=== PATIENT | female | born 1990 | race Caucasian/White ===

== ENCOUNTER → 2018-02-04 09:48 | Outpatient (CLI) | payer SELFPAY ==
[2018-02-04 11:46] LABS: hCG Titer Quant., Serum < 1 mIU/mL (<9 non-preg)
== END ==
PROVIDERS: Visit Provider Obstetrics & Gynecology
DX: N91.2 Amenorrhea, unspecified (principal)
CPT/HCPCS: 36415; 84702

== ENCOUNTER → 2018-08-10 09:46 | Outpatient (CLI) | payer OTHER, SELFPAY ==
[2014-01-30 07:58] VITALS: BMI 31.6
[2018-08-10 10:45] LABS: Color, Urine Yellow (Yellow); Glucose, Dipstick Normal (Normal); Ketone-Dipstick Negative (Negative); Leukocyte Esterase-Dipstick 500 /ul (Negative); Nitrite-Dipstick Negative (Negative); Occult Blood-Urine Negative /ul (Negative); Protein-Dipstick Negative (Negative); Urine Bilirubin Dipstick Negative (Negative); Urine Clarity Clear (Clear); Urine Urobilinogen Normal (Normal)
[2018-08-10 10:50] LABS: Absolute Lymphocyte Count 1.89 X10^3/ul (0.83-4.51); Absolute Neutrophil Count 5.6 X10^3/uL (2.0-7.7); Basophil# 0.02 X10^3/uL; Basophil% 0.2 % (0-1); Eosinophil# 0.07 X10^3/uL; Eosinophils% 0.9 % (0-5); Hematocrit 39.3 % (37-47); Hemoglobin 13.4 g/dl (12.0-15.0); Lymphocyte # 1.89 X10^3/ul (4.0); Lymphocyte % 23.5 % (19-41); Mean Corp Hgb Conc 34.1 g/gl (32-36); Mean Corpuscular Hgb 30.9 pg (27.0-32.0); Mean Corpuscular Volume 90.6 fL (81-99); Monocyte# 0.48 X10^3/uL; Neutrophil # 5.58 X10^3/uL (2.7-7.7); Neutrophil % 69.3 % (47-70); Platelet Count 255 K/mm3 (150-450); RBC Distribution Width CV 12.5 % (11.6-14.6); RBC Distribution Width SD 40.8 fl (35.1-43.9); Red Blood Count 4.34 M/mm3 (4.2-5.4); White Blood Count 8.1 K/mm3 (4.4-11.0)
[2018-08-10 11:06] LABS: POSITIVE COUNT NO; POSITIVE DIFFERENTIAL NO; POSITIVE MORPHOLOGY NO
[2018-08-10 12:01] LABS: HIV - WCH Non-Reactive (Nonreactive); Rubella IgG 23.7 IU/mL; Thyroid Stim Hormone (TSH) 1.75 uIU/mL (0.358-3.74)
[2018-08-10 17:21] LABS: Chlamydia Trachomatis by PCR Negative (Negative); Neisserai gonorrhoeae by PCR Negative (Negative); Probe Check PASS; Sample Adequacy Control PASS; Specimen Processing Control PASS
[2018-08-11 16:48] LABS: HEPATITIS B SURFACE AG Negative (Negative); Hep C Antibodies 0.1 s/co ratio (0.0-0.9)
[2018-08-12 01:43] LABS: Prenatal RPR NONREACTIVE (NONREACTIVE)
[2018-08-16 17:50] LABS: HPV Reflexed? NOT INDICATED
== END ==
PROVIDERS: Visit Provider Obstetrics & Gynecology
DX: Z34.81 Encounter for supervision of other normal pregnancy, first trimester (principal); Z12.4 Encounter for screening for malignant neoplasm of cervix; Z11.3 Encounter for screening for infections with a predominantly sexual mode of transmission
CPT/HCPCS: 36415; 81002; 84443; 85025; 86703; 86762; 86803; 87340; 87491; 87591; 88175; G0145

== ENCOUNTER → 2019-01-11 09:08 | Outpatient (CLI) | payer OTHER, SELFPAY ==
[2019-01-11 10:53] LABS: Glucose Challenge Gest 1H 50g 68 mg/dL (70-140)
[2019-01-11 10:57] LABS: Hematocrit 35.5 % (37-47); Hemoglobin 11.5 g/dL (12.0-15.0); Mean Corp Hgb Conc 32.4 g/dL (32-36); Mean Corpuscular Hgb 31.3 pg (27.0-32.0); Mean Corpuscular Volume 96.5 fL (81-99); Mean Platelet Vol. 9.8 fl (6.2-12.0); Platelet Count 241 K/mm3 (150-450); RBC Distribution Width CV 12.6 % (11.6-14.6); RBC Distribution Width SD 44.1 fl (35.1-43.9); Red Blood Count 3.68 M/mm3 (4.2-5.4)
== END ==
PROVIDERS: Visit Provider Obstetrics & Gynecology
DX: Z34.83 Encounter for supervision of other normal pregnancy, third trimester (principal)
CPT/HCPCS: 36415; 82950; 85027; 86850

== ENCOUNTER → 2019-03-03 15:37 | Outpatient (CLI) | payer OTHER, SELFPAY | PROVIDERS: Visit Provider Obstetrics & Gynecology | DX: Z36.85 Encounter for antenatal screening for Streptococcus B (principal) | CPT/HCPCS: 87081 ==

== ENCOUNTER 2019-03-29 01:30 | Inpatient (IN) | payer SELFPAY, OTHER ==
[2014-01-30 07:58] VITALS: BMI 31.6
[2019-03-28 20:12] VITALS: BMI 36.6
[2019-03-29] MEDS: Lactated Ringers 1,000 ML 50 ML IV (02:00)
[2019-03-29 02:18] LABS: Absolute Lymphocyte Count 1.85 X10^3/uL (0.83-4.51); Absolute Neutrophil Count 12.8 X10^3/uL (2.0-7.7); Basophil# 0.04 X10^3/uL; Basophil% 0.3 % (0-1); Eosinophil# 0.01 X10^3/uL; Eosinophils% 0.1 % (0-5); Hemoglobin 11.4 g/dL (12.0-15.0); Lymphocyte # 1.85 X10^3/ul (4.0); Mean Corp Hgb Conc 33.5 g/dL (32-36); Mean Corpuscular Hgb 31.2 pg (27.0-32.0); Mean Corpuscular Volume 93.2 fL (81-99); Mean Platelet Vol. 9.7 fl (6.2-12.0); Monocyte% 3.9 % (0-10); NRBC Flagged by Analyzer 0 % (0-5); Neutrophil # 12.82 X10^3/uL (2.7-7.7); Neutrophil % 83.1 % (47-70); Platelet Count 281 K/mm3 (150-450); RBC Distribution Width CV 12.9 % (11.6-14.6); RBC Distribution Width SD 43.7 fl (35.1-43.9); Red Blood Count 3.65 M/mm3 (4.2-5.4); White Blood Count 15.4 K/mm3 (4.4-11.0)
[2019-03-29] MEDS: Lactated Ringers 500 ML 999 ML IV ×2 (02:20→03:33)
--- NOTE | 2019-03-29 03:05 | HP.PCM_ITS ---
History and Physical Date of Admission: 03/29/19 OB HISTORY AND PHYSICAL EXAMINATION History of this : 28 yo female Ab1 with EDC 03/30/2019 by 6 weeks 6 days Ultrasound, presents to Labor and Delivery pm 03/28/19 with CC of UCs. Observed and eventual change from 2cm to 4 cm. Admitted for labor. care remarkable for - O NEGATIVE. Rubella immune GBS negative. 1.) * Prefers MD for delivery 2.) Anatomy normal, bilateral choroid plexus cysts at 20 weeks, resolved at 31 weeks 3.) Rh negative SURGICAL HISTORY: 1. none MENSTRUAL HISTORY: LMP Known?- Definite Amount/Duration - 4, Regularity - Irregular, Frequency - variable days, LMP - 05/29/18, Age Onset Menarche - 11 PAST PREGNANCIES: Total Pregnancies - 4; Full Term Pregnancies - 2; Premature - 0; Abortions, Induced - 0; Abortions, Spontaneous - 1; Ectopics - 0; Multiple Births - 0; Living Children - 2 SOCIAL HISTORY: Alcohol Use - RARELY not while Smoking - denies smoking Diet - moderate, balanced diet Lifestyle - Exercise - walking Employer - [email or web address] Illicit Drug Use - denies use of street drugs Sexual Activity - Residence - lives with Spouse-Sig Other Name - Chris Spouse-Sig Other Occupation - [employer] Spouse-Sig Other Phone No - [phone] cell - shared w/ pt Children Name(s) - Terra (CALEB), Sam Wyman (CRISTINE) Control - Allergies: NKDA Medications: During - Supplement (s) [No Strength]; Multivitamins 28 mg iron-800 mcg tablet; magnesium 200 mg tablet; vitamin B complex tablet; vitamin E 100 unit capsule Review of Systems: Contractions. Denies ROM. No vaginal bleeding. PHYSICAL EXAMINATION General Appearance: 28 yo female in no acute distress Vital Signs: AF, VSS Lungs: regular rate and rhythm Breasts: deferred Abdomen: gravid Cervix: 4/75/-3 Presentation: cephalic Size: AGA Movement: present Heart: 130-14os avg variability. Accels Category I tracing. UCs q 2-7 mins Impression /Plan: Intrauterine . Early labor. IBOW. Category I tracing. Admit for labor and delivery. Considering epidural, declines at present.
[2019-03-29] MEDS: fentaNYL-bupivacaine (epidural) 100 ML BAG EPIDURAL ×2 (03:55→08:09)
[2019-03-29] MEDS: Oxytocin 30 units/NS 500 ml 30 UNITS/500 ML IV.SOLN IV (06:27)
[2019-03-29] MEDS: Lactated Ringers 1,000 ML 200 ML IV (08:07)
[2019-03-29] MEDS: Oxytocin 30 units/NS 500 ml 30 UNITS/500 ML IV.SOLN 334 UNITS IV (09:44)
--- NOTE | 2019-03-29 10:12 | PCM.PN.BLA ---
Progress Note LABOR PROGRESS NOTE Late entry from rounding this am at 0820 am Comfortable with epidural and not feeling anything Offered AROM and choses to do this. EFM 130-140s with accels. Category I tracing. UCs noted AROM clear fluid. 5 cm. A/P: 39 5/7 wk presented in early labor. AROM Watch progress, descent. Anticipate .
--- NOTE | 2019-03-29 12:49 | PCM.OPRPT ---
Vaginal Delivery Maternal Presentation: Active Labor 39 5/7 wk labor Amniotic Membrane Rupture Type: Artificial Amniotic Fluid Description: Clear Final ZAYDA: 03/31/19 Final ZAYDA Source: US <20 weeks Gestational age: 39 Weeks and 5 Days Date of Procedure: 03/29/19 Pre-Operative Diagnosis: 39 5/7 wk EGA labor Post-Operative Diagnosis: same Surgery/ Procedure Performed: Spontaneous Vaginal Delivery Type of Anesthesia: Epidural Description of Procedure: AROM and Pitocin augmented. of a harris viable female over intact perineum. Head delivered DEONTE. No nuchal cord noted. Shoulders delivered easily. Infant to maternal abdomen and OP and nares bulb suctioned on abdomen. Cord clamped times two and cut. Ap 01/02 Routine cord blood obtained for typing -- Pt is O Neg PP exam. Abrasions only and no repair required. Placenta delivered by spont expulsion, expression 3V cord, normal appearing, intact. EBL 250 cc Pt and infant tolerated delivery well. to recovery, stable condition. Ray Shawna and needle counts correct times two. Presentation: Vertex, DEONTE Placental Delivery Description: Spontaneous, Expressed Placenta Disposition: [facility] Cord Vessel Description: 3 Vessels Cord Entanglement: None Drain: Rm to straight drain Estimated Blood Loss: 250 A gender: Female (1 minute): 9 (5 minute): 9 Episiotomy Description: None Laceration: None - abrasions only and no repair required Medications given after delivery: IV Pitocin
[2019-03-29] MEDS: Ibuprofen 600 MG Tablet PO (13:53)
[2019-03-29 15:30] VITALS: BP 114/68; PULSE 86; RESP 24; TEMP 36.8; O2SAT 95
[2019-03-29 20:23] VITALS: BP 102/78; PULSE 91; RESP 16; TEMP 36.5; O2SAT 96
[2019-03-30 00:43] VITALS: BP 121/76; PULSE 85; RESP 16; TEMP 36.6
[2019-03-30] MEDS: Ibuprofen 600 MG Tablet PO (00:48)
[2019-03-30 04:02] VITALS: BP 122/70; PULSE 82; RESP 14; TEMP 36.5
--- NOTE | 2019-03-30 08:10 | PCM.DCVAG ---
Discharge Diet: No Restrictions Discharge Activity: May Shower, May Take a Tub Bath May resume sexual activity in: 4-6 weeks Additional Instructions: If you experience any of the following, contact your healthcare provider. Bleeding that soaks a pad every hour for 2 hours Fever 100.4 or higher Unrelieved abdominal pain Problems urinating (including inability to urinate or burning while urinating). Visual changes Severe headache Flu-like symptoms Pain or redness in one of both of your breasts Pain, warmth, tenderness or swelling in your legs, especially the calf area Frequent nausea and vomiting Symptoms of depression or anxiety If you experience any of the following, call 911 or go to the nearest Emergency Room. Chest pain Problems breathing Seizure activity Partial or complete paralysis of a body part, slurred speech, weakness or drooping of the face, or a sudden inability to walk or hold your balance Allergies/Adverse Reactions: Allergies No Known Allergies Allergy (Verified 03/28/19 20:13) Medications to take at Discharge Vits [Prenatabs FA ] 1 tablet PO DAILY 01/30/14 Please Follow Up With: Litzy Alvarez MD - [phone] When: Call to make an appointment with your doctor in 6 weeks. If you had elevated Blood Pressure or 4th degree laceration you will need to be seen in 2 weeks. Test Results: Test results from this visit will be discussed in further detail at your follow-up appointment, if applicable. Proposed Discharge Date: 03/30/19
--- NOTE | 2019-03-30 08:10 | DCINST_ITS ---
Discharge Diet: No Restrictions Discharge Activity: May Shower, May Take a Tub Bath May resume sexual activity in: 4-6 weeks Additional Instructions: If you experience any of the following, contact your healthcare provider. * Bleeding that soaks a pad every hour for 2 hours * Fever 100.4 or higher * Unrelieved abdominal pain * Problems urinating (including inability to urinate or burning while urinating). * Visual changes * Severe headache * Flu-like symptoms * Pain or redness in one of both of your breasts * Pain, warmth, tenderness or swelling in your legs, especially the calf area * Frequent nausea and vomiting * Symptoms of depression or anxiety If you experience any of the following, call 911 or go to the nearest Emergency Room. * Chest pain * Problems breathing * Seizure activity * Partial or complete paralysis of a body part, slurred speech, weakness or drooping of the face, or a sudden inability to walk or hold your balance Allergies/Adverse Reactions: Allergies No Known Allergies Allergy (Verified 03/28/19 20:13) Medications to take at Discharge Vits [Prenatabs FA ] 1 tablet PO DAILY 01/30/14 Please Follow Up With: Litzy Alvarez MD - [phone] When: Call to make an appointment with your doctor in 6 weeks. If you had elevated Blood Pressure or 4th degree laceration you will need to be seen in 2 weeks. Test Results: Test results from this visit will be discussed in further detail at your follow- up appointment, if applicable. Proposed Discharge Date: 03/30/19
--- NOTE | 2019-03-30 08:11 | PCM.PN.OB ---
Subjective: PPD#1 Doing well. breast feeding and baby is sleepy. Minimal pain. if all going well today with baby, would like to go home today. - Physical Exam Vitals/I&O's: Vital Signs Temp Pulse Resp BP Pulse Ox 97.7 F L 82 14 122/70 H 96 03/30/19 04:02 03/30/19 04:02 03/30/19 04:02 03/30/19 04:02 03/29/19 20:23 Oxygen Delivery Method Room Air Weight: 102.965 kg Body Mass Index (BMI) 36.6 Intake and Output for Last 24 Hours 03/28/19 03/29/19 03/30/19 23:59 23:59 23:59 Intake Total 3282.39 / 3282.39 Output Total 1950 / 1950 Balance 1332.39 / 1332.39 General: Alert, Oriented x3, Cooperative, No apparent distress HEENT: Atraumatic, EOMI Neck: Supple Extremities: Edema Neurological: Cranial nerves II-XII grossly intact Psych/Mental Status: Normal Affect Current Medications Acetaminophen (Tylenol) 1,000 mg PO Q8H PRN PRN PRN Reason: Pain Score 1-3/10 Bisacodyl (Dulcolax) 10 mg RECTAL UD PRN PRN Reason: If no BM Dibucaine (Dibucaine) 1 applic TOPICAL TID PRN PRN; Protocol PRN Reason: Discomfort Hydrocortisone (Hytone) 1 applic TOPICAL TID PRN PRN; Protocol PRN Reason: Discomfort Ibuprofen (Motrin) 600 mg PO Q6H PRN PRN PRN Reason: Pain Score 1-3/10 Last Admin: 03/30/19 00:48 Dose: 600 mg Documented by: Methylergonovine Maleate (Methergine) 0.2 mg IM X1 PRN PRN Reason: Excess bleeding/uterine atony Ondansetron HCl (Zofran) 4 mg IV Q4H PRN PRN PRN Reason: Nausea Senna/Docusate Sodium (Senokot-S, Renetta-Colace) 1 - 2 tablet PO DAILY PRN PRN PRN Reason: Constipation Simethicone (Mylicon) 80 mg PO PCHS PRN PRN Reason: Indigestion/Stomach pain Sodium Chloride () 5 - 15 ml IV UD PRN PRN Reason: SALINE FLUSH Zolpidem Tartrate (Ambien (Generic)) 5 mg PO QHS PRN PRN PRN Reason: Insomnia Medical Necessity - Tobacco Use Smoking Status: Never smoker Assessment/Plan PPD#1 Stable . GBS neg and plans to go home today if baby is released. Continue routine pp care. Dischg home today if baby is released. RTO in 6 wk for pp check prn sooner.
[2019-03-30 09:10] VITALS: BP 125/58; PULSE 91; RESP 18; TEMP 36.4
--- NOTE | 2019-03-30 12:13 | NURSING ---
pt noticed area on right leg on outer calf, and one spot upper inner thigh that was pink and slightly warm. spot on calf the size of 1.2 dollar and slightly oblong, the spot on her inner thigh is the size of a ever. Pt is watching the areas and following up with her doctor the same time her baby follows up today or Sat. They seem the same provider.
[2019-03-30 13:44] VITALS: BP 119/62; PULSE 86; RESP 18; TEMP 36.6
== END 2019-03-30 15:15 | disposition home or self-care (01) | DRG 807 ==
LOC: WPOUT 01:32 → WP 01:32
PROVIDERS: Admitting Provider Obstetrics & Gynecology; Referring Provider Obstetrics & Gynecology; Visit Provider Obstetrics & Gynecology
DX: O35.0XX0 Maternal care for (suspected) central nervous system malformation in fetus, not applicable or unspecified (principal); Z37.0 Single live birth; O71.89 Other specified obstetric trauma; Z3A.39 39 weeks gestation of pregnancy
CPT/HCPCS: 59025; 59050; 85025; 86850; 86900; 86901; 99218; J7120; G0378

== ENCOUNTER → 2022-01-05 | Outpatient (CLI) | payer OTHER, SELFPAY ==
[2022-01-08 16:33] LABS: HPV APTIMA, High Risk Negative (Negative)
== END | disposition home or self-care (01) ==
LOC: LABSPEC 09:53
PROVIDERS: Visit Provider Student in an Organized Health Care Education/Training Program
DX: Z12.4 Encounter for screening for malignant neoplasm of cervix (principal)
CPT/HCPCS: 87624; 88175; G0145

== ENCOUNTER → 2022-03-25 | Outpatient (CLI) | payer OTHER, SELFPAY ==
[2022-03-25 14:33] LABS: Absolute Lymphocyte Count 1.91 X10^3/uL (0.83-4.51); Absolute Neutrophil Count 8.2 X10^3/uL (2.0-7.7); Basophil# 0.04 X10^3/uL; Basophil% 0.4 % (0-1); Eosinophil# 0.03 X10^3/uL; Eosinophils% 0.3 % (0-5); Hematocrit 40.9 % (37-47); Hemoglobin 13.5 g/dL (12.0-15.0); Lymphocyte # 1.91 X10^3/ul (0.83-4.51); Lymphocyte % 17.8 % (19-41); Mean Corpuscular Hgb 30.1 pg (27.0-32.0); Mean Corpuscular Volume 91.3 fL (81-99); Mean Platelet Vol. 9.8 fl (6.2-12.0); Monocyte# 0.47 X10^3/uL; Monocyte% 4.4 % (0-10); NRBC Flagged by Analyzer 0 % (0-5); Neutrophil # 8.21 X10^3/uL (2.7-7.7); Neutrophil % 76.6 % (47-70); Platelet Count 291 K/mm3 (150-450); RBC Distribution Width CV 12.5 % (11.6-14.6); RBC Distribution Width SD 41.3 fl (35.1-43.9); Red Blood Count 4.48 M/mm3 (4.2-5.4); White Blood Count 10.7 K/mm3 (4.4-11.0)
[2022-03-25 16:13] LABS: HIV - WCH Non-Reactive (Nonreactive); Hepatitis B Surface Antigen Non-Reactive (Nonreactive); Hepatitis C Antibody Non-Reactive (Nonreactive); Rubella IgG Reactive (Nonreactive); Syphilis Antibodies Non-reactive
[2022-03-27 10:42] LABS: V-Zoster IgG (Immunity) 776 index (Immune >165)
[2022-03-30 22:06] LABS: Chlamydia By Nucleic Acid AMP Negative (Negative)
[2022-03-31 11:12] LABS: Gonococcus By Nucleic Acid AMP Negative (Negative)
== END | disposition home or self-care (01) ==
LOC: WOBLAB 13:54
PROVIDERS: Visit Provider Student in an Organized Health Care Education/Training Program
DX: Z34.81 Encounter for supervision of other normal pregnancy, first trimester (principal); Z11.3 Encounter for screening for infections with a predominantly sexual mode of transmission
CPT/HCPCS: 36415; 85025; 86703; 86762; 86780; 86787; 86803; 87086; 87088; 87340; 87491; 87591

== ENCOUNTER → 2022-08-28 | Outpatient (CLI) | payer OTHER, SELFPAY ==
[2022-08-28 10:45] LABS: Absolute Lymphocyte Count 1.92 X10^3/uL (0.83-4.51); Absolute Neutrophil Count 8.1 X10^3/uL (2.0-7.7); Basophil# 0.04 X10^3/uL; Basophil% 0.4 % (0-1); Eosinophil# 0.07 X10^3/uL; Eosinophils% 0.7 % (0-5); Hematocrit 35.7 % (37-47); Hemoglobin 12.1 g/dL (12.0-15.0); Lymphocyte # 1.92 X10^3/ul (0.83-4.51); Mean Corp Hgb Conc 33.9 g/dL (32-36); Mean Corpuscular Hgb 31.8 pg (27.0-32.0); Mean Corpuscular Volume 93.7 fL (81-99); Mean Platelet Vol. 9.7 fl (6.2-12.0); Monocyte% 4.7 % (0-10); NRBC Flagged by Analyzer 0 % (0-5); Neutrophil # 8.08 X10^3/uL (2.7-7.7); Neutrophil % 75.6 % (47-70); Platelet Count 286 K/mm3 (150-450); RBC Distribution Width CV 12.5 % (11.6-14.6); RBC Distribution Width SD 43.1 fl (35.1-43.9); Red Blood Count 3.81 M/mm3 (4.2-5.4); White Blood Count 10.7 K/mm3 (4.4-11.0)
[2022-08-28 10:47] LABS: Glucose Challenge Gest 1H 50g 89 mg/dL (70-140)
[2022-08-28 11:11] LABS: Syphilis Antibodies Non-reactive
== END | disposition home or self-care (01) ==
LOC: WOBLAB 09:48
PROVIDERS: Visit Provider Nurse Practitioner Women's Health
DX: Z34.83 Encounter for supervision of other normal pregnancy, third trimester (principal)
CPT/HCPCS: 36415; 82950; 85025; 86780; 86850

== ENCOUNTER → 2022-10-06 | Outpatient (CLI) | payer OTHER, SELFPAY | END | disposition home or self-care (01) | LOC: LABSPEC 13:59 | PROVIDERS: Visit Provider Nurse Practitioner Women's Health | DX: R30.0 Dysuria (principal) | CPT/HCPCS: 87086; 87088 ==

== ENCOUNTER → 2022-10-21 | Outpatient (CLI) | payer OTHER, SELFPAY ==
[2022-10-21 10:16] LABS: Absolute Lymphocyte Count 1.86 X10^3/uL (0.83-4.51); Absolute Neutrophil Count 7.9 X10^3/uL (2.0-7.7); Basophil# 0.04 X10^3/uL; Basophil% 0.4 % (0-1); Eosinophil# 0.05 X10^3/uL; Eosinophils% 0.5 % (0-5); Hematocrit 35.4 % (37-47); Hemoglobin 11.8 g/dL (12.0-15.0); Lymphocyte # 1.86 X10^3/ul (0.83-4.51); Lymphocyte % 17.8 % (19-41); Mean Corp Hgb Conc 33.3 g/dL (32-36); Mean Corpuscular Hgb 31.2 pg (27.0-32.0); Mean Corpuscular Volume 93.7 fL (81-99); Mean Platelet Vol. 9.7 fl (6.2-12.0); Monocyte# 0.49 X10^3/uL; Monocyte% 4.7 % (0-10); NRBC Flagged by Analyzer 0 % (0-5); Neutrophil # 7.94 X10^3/uL (2.7-7.7); Neutrophil % 76.1 % (47-70); Platelet Count 276 K/mm3 (150-450); RBC Distribution Width CV 12.9 % (11.6-14.6); RBC Distribution Width SD 43.8 fl (35.1-43.9); Red Blood Count 3.78 M/mm3 (4.2-5.4); White Blood Count 10.4 K/mm3 (4.4-11.0)
== END | disposition home or self-care (01) ==
LOC: WOBLAB 09:37
PROVIDERS: Visit Provider Student in an Organized Health Care Education/Training Program
DX: Z34.82 Encounter for supervision of other normal pregnancy, second trimester (principal); Z36.85 Encounter for antenatal screening for Streptococcus B
CPT/HCPCS: 36415; 85025; 87081

== ENCOUNTER 2022-11-19 06:15 | Inpatient (IN) | payer SELFPAY, OTHER ==
[2022-11-19] VITALS (133 sets, daily range): BP systolic 91–149; BP diastolic 55–98; PULSE 71–107; RESP 14–18; TEMP 36.4–37.2; O2SAT 92–99; BMI 39.5
[2022-11-19] MEDS: Lactated Ringers 1,000 ML 50 ML IV (06:40)
[2022-11-19 07:01] LABS: Absolute Lymphocyte Count 1.93 X10^3/uL (0.83-4.51); Absolute Neutrophil Count 10.7 X10^3/uL (2.0-7.7); Basophil# 0.05 X10^3/uL; Basophil% 0.4 % (0-1); Eosinophil# 0.02 X10^3/uL; Eosinophils% 0.1 % (0-5); Hematocrit 36.2 % (37-47); Hemoglobin 11.9 g/dL (12.0-15.0); Lymphocyte # 1.93 X10^3/ul (0.83-4.51); Lymphocyte % 14.5 % (19-41); Mean Corp Hgb Conc 32.9 g/dL (32-36); Mean Corpuscular Hgb 30.5 pg (27.0-32.0); Mean Corpuscular Volume 92.8 fL (81-99); Mean Platelet Vol. 10.1 fl (6.2-12.0); Monocyte# 0.59 X10^3/uL; Monocyte% 4.4 % (0-10); NRBC Flagged by Analyzer 0 % (0-5); Neutrophil # 10.68 X10^3/uL (2.7-7.7); Neutrophil % 80.1 % (47-70); Platelet Count 265 K/mm3 (150-450); RBC Distribution Width CV 13.6 % (11.6-14.6); RBC Distribution Width SD 45.9 fl (35.1-43.9); White Blood Count 13.3 K/mm3 (4.4-11.0)
[2022-11-19] MEDS: LACTATED RINGERS 500 ML 999 ML IV ×2 (07:10→14:05)
[2022-11-19] MEDS: fentaNYL-bupivacaine (epidural) 100 ML BAG EPIDURAL ×2 (07:57→12:00)
--- NOTE | 2022-11-19 08:54 | HP.PCM.OB_ITS ---
History and Physical Date of Admission: 11/19/22 Chief complaint: Contractions History present illness: 31-year-old G5, P3 at 40 weeks and 6 days with ZAYDA 11/13/2022 arrives with contractions. Denies headache, vision changes, chest pain, shortness of breath, nausea vomit, right upper quadrant pain. Patient states good movement. is complicated by BMI 39 Obstetric history: G1: Term 7 pounds 3 ounces female G2: 40-week 8 pounds 15 ounces male G3: SAB G4: 40-week 8 pounds 3 ounces female G5: Current Past medical history: None Medications: vitamin Allergies: No known drug allergies Past surgical history: [place] teeth extraction Family history: Denies history DVT or PE Social history: Denies smoking, alcohol use, drug use Review of systems: Besides above pertinent positives a full review of systems was performed and found to be negative Physical exam: Vitals: Pulse 103 SPO2 99% on room air General: Normal-appearing no acute distress HEENT: Normocephalic/atraumatic no cervical lymphadenopathy Cardiac/respiratory: No use accessory muscles, nonlabored breathing Abdomen: Soft, nontender, gravid Pelvic exam: Cervical exam 5/70/-2. AROM thin meconium Extremities: No peripheral edema normal peripheral pulses Psych: Normal affect normal demeanor nonpressured speech Labs: White blood cell count 13.3 hemoglobin 11.9 hematocrit 36.2% platelets 265 Assessment and plan: Called by nursing patient with contractions and found to be 5 cm dilated given orders for admission informed by nursing that patient desires epidural. Patient seen and examined. 31-year-old G5, P3 at 40 weeks and 6 days arrives in labor. GBS negative. 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 Continue current management
[2022-11-19 09:09] LABS: Syphilis Antibodies Non-reactive
[2022-11-19] MEDS: Oxytocin 15 Units/NS 250ml 15 UNITS/250 ML IV.SOLN 2 UNITS IV (10:34)
[2022-11-19] MEDS: Lactated Ringers 1,000 ML 200 ML IV (12:41)
--- NOTE | 2022-11-19 16:00 | CASEMGMT ---
Social Work Labor and Delivery Unit Sw made aware of FELICIA with mother of baby (MOB- Mulu). Sw presented to FELIC[facility] and provided support to father of baby (FOB). While MOB was getting prepared for sw talked to FOB and ensured he remained in calm and collected state. FOB states that he does have a history of passing out before during one of his 's prior labors. Sw encouraged FOB to sit down until he was informed what the next step is regarding the baby's delivery. While waiting sw provided much support and ensured FOB was comfortable. MOB required delivery, FOB was able to be with MOB as support during delivery. NO further sw needs or concerns at this time. Sophia Mitchell, [employer], SALES REPRESENTATIVE [employer]ACILITY SERVICES
[2022-11-19] MEDS: Cefazolin 2 GM in 0.9% Normal Saline 100 ML IV (16:10)
--- NOTE | 2022-11-19 16:10 | PN.OBGYN_ITS ---
Subjective Subjective Patient overall comfortable with epidural Objective Data Objective Data Vital Signs: Vital Signs Temp Pulse BP Pulse Ox 98.0 F 103 H 136/85 H 99 11/19/22 15:07 11/19/22 15:45 11/19/22 15:07 11/19/22 15:45 Weight: 245 lb Body Mass Index (BMI) 39.5 Intake & Output: Intake and Output for Last 24 Hours 11/17/22 11/18/22 11/19/22 23:59 23:59 23:59 Intake Total 1514.23 / 1514.23 Balance 1514.23 / 1514.23 Lab / Micro Data 11/19/22 06:40 Labs: Laboratory Results - last 24 hr 11/19/22 06:40: WBC 13.3 H, RBC 3.90 L, Hgb 11.9 L, Hct 36.2 L, MCV 92.8, MCH 30.5, MCHC 32.9, RDW Std Deviation 45.9 H, RDW Coeff of Geronimo 13.6, Plt Count 265, MPV 10.1, Immature Gran % (Auto) 0.500, Neut % (Auto) 80.1 H, Lymph % (Auto) 14.5 L, [place] % (Auto) 4.4, Eos % (Auto) 0.1, Baso % (Auto) 0.4, Absolute Neuts (auto) 10.7 H, Absolute Lymphs (auto) 1.93, Nucleated RBC % 0, Syphilis Total Ab Non-reactive, Blood Type O NEGATIVE, Antibody Screen NEGATIVE Physical Exam Const alert, oriented x3, average body habitus, healthy appearing and well nourished HEENT normocephalic and moist oral mucous membranes Eyes PERRL Neck full ROM Resp normal respiratory effort, no retractions and no use of accessory muscles GI GI Narrative: Soft, nontender, gravid Narrative: Cervical exam: -/-2 Assessment & Plan (1) : PLAN: Earlier in the day message left by nursing that patient progressing in labor 6 cm with reported by nursing intermittent decelerations, then reported via message from nursing patient 8 cm with again intermittent decelerations nothing concerning. Called by nursing that patient with recurrent decelerations and prolonged deceleration informed headed to labor and delivery for evaluation. Upon arriving to labor and delivery prior to seeing patient OB ERT was called by nursing. Arrived to operating room to evaluate heart tones within normal limits. Cervical exam as above. With stable heart tones reviewed entire tracing noting that recurrent decelerations noted since noon and prolonged deceleration occurred for approximately 4 to 5 minutes. heart tones now recovered based on heart rate tracing educated patient on findings and discussed persistent decelerations In need of primary section Via Pfannenstiel incision. Educated patient on risk benefits alternatives include but are not limited to visceral or vascular injury, prolonged hospitalization, blood loss need for transfusion, reoperation. Pat ient need understanding wish to proceed. All questions were answered and consent was signed. Given orders to nursing for 2 g Ancef and 500 mg of azithromycin with 2 g Ancef and needing to be within 30 minutes of incision. Discussed with anesthesia. Discussed case with vacuum form operator. For section now
--- NOTE | 2022-11-19 16:58 | OP.PCM_ITS ---
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 Normal uterus, tubes, and ovaries. Consent: Patient arrived in labor found to subsequently have nonreassuring heart tones and elected for primary section Via Pfannenstiel incision. Patient understands risk of the procedure include but are not limited to visceral or vascular injury, prolonged hospitalization, blood loss need for transfusion, reoperation. Patient state understanding wish to proceed. All questions were answered and consent was signed. Procedure: Patient was brought back to the OR where epidural anesthesia was found to be adequate. 2 g of Ancef and 500 mg of azithromycin were given for infection prophylaxis. Patient was prepared and draped in a supine position with leftward tilt. A Pfannenstiel incision was made at the skin with a scalpel. The incision was carried down to the fascia with a scalpel. The fascia was excised and extended laterally. Rectus muscle was dissected at the midline down to the level of the pubic symphysis. Preperitoneal fatty tissue was noted peritoneum was entered bluntly. Peritoneum was extended superiorly and inferiorly with good visualization of bladder. Bladder blade was inserted and vesicouterine peritoneum was identified. Low transverse hysterotomy was made. Hand was placed into the incision and gentle fundal pressure was applied once the bladder blade was removed and the head was placed into the incision. Head and shoulders were delivered with ease. Cord was clamped and cut. Baby handed off to nursing. Placenta was delivered via cord traction and fundal massage. IV oxytocin was initiated in order to facilitate uterine contractions. Uterus was exteriorized and wiped out with dry laparotomy sponge in order to remove remaining placental membranes. Hysterotomy was closed in continuous running fashion. [id number] sutures were used for hemostasis. Good hemostasis was noted. Uterus was placed back in the abdominal cavity and the incision was reinspected, good hemostasis was noted. Jatin was placed over the hysterotomy incision. Good hemostasis was noted. Fascia was closed in continuous running fashion with PDS suture. Subcutaneous irrigation was performed and good hemostasis was noted. Skin was closed in a subcuticular fashion. Good hemostasis was noted. All counts were correct x2. Patient tolerated procedure well and was brought to recovery in stable condition.
[2022-11-19] MEDS: Oxytocin 15 Units/NS 250ml 15 UNITS/250 ML IV.SOLN 83 UNITS IV (17:17)
[2022-11-19] MEDS: Ketorolac 30 MG/ML Syringe IV ×2 (17:37→23:32)
[2022-11-19] MEDS: Acetaminophen 500 MG Tablet 1000 MG PO ×2 (17:37→23:32)
[2022-11-19] MEDS: 0.9% Saline Lock 10 ML Syringe IV (17:38)
[2022-11-19] MEDS: Methylergonovine 0.2 MG/ML Ampul IM (19:16)
[2022-11-19] MEDS: Lactated Ringers 1,000 ML 100 ML IV (20:33)
[2022-11-20] VITALS (64 sets, daily range): BP systolic 111–129; BP diastolic 60–83; PULSE 78–98; RESP 16–20; TEMP 36.1–36.8; O2SAT 96–99
[2022-11-20] MEDS: Ketorolac 30 MG/ML Syringe IV ×2 (05:29→11:06)
[2022-11-20] MEDS: Enoxaparin 40 MG/0.4 ML Syringe SC (05:29)
[2022-11-20] MEDS: Acetaminophen 500 MG Tablet 1000 MG PO ×4 (05:29→23:44)
[2022-11-20 05:49] LABS: Hematocrit 30.1 % (37-47); Hemoglobin 9.9 g/dL (12.0-15.0); Mean Corp Hgb Conc 32.9 g/dL (32-36); Mean Corpuscular Hgb 30.9 pg (27.0-32.0); Mean Corpuscular Volume 94.1 fL (81-99); Mean Platelet Vol. 9.8 fl (6.2-12.0); Platelet Count 211 K/mm3 (150-450); RBC Distribution Width CV 13.8 % (11.6-14.6); White Blood Count 13.1 K/mm3 (4.4-11.0)
--- NOTE | 2022-11-20 08:35 | DCINST_ITS ---
Discharge Instructions Diet Discharge Diet: No restrictions Activity Discharge Activity: Return to Normal Activity, May Drive, May Shower and - (No tub baths for 2 weeks) May resume sexual activity in: 6-8 weeks Lifting Restrictions: No lifting over 25 pounds for 2 to 3 weeks Dressing / Incision Call your doctor if your incision/area has: Continuous Slow Oozing and Foul Smelling Discharge Call your doctor if you observe: Fever of 101 or Higher, Shortness of breath and Chest pain Follow Up Care Please Follow Up With: Garo Handy MD When: 2 weeks postoperatively Test Results: Test results from this visit will be discussed in further detail at your follow- up appointment, if applicable. Discharge Plan Admission Admit Date/Time: 11/19/22 06:15 Primary Reason for Your Visit: Labor Attending Provider: Garo Handy Instructions Additional Instructions / Restrictions: Regular diet. Okay to shower. No tub baths for 2 weeks. No lifting over 25 pounds for 2 to 3 weeks. No intercourse for 6 to 8 weeks. Call if fevers, chills, chest pain, shortness of breath. Follow-up 2 weeks postoperatively Discharge Orders/Prescriptions Prescriptions: New oxycodone 5 mg tablet 5 mg PO Q6H PRN (Reason: pain (scale score 7-10)) 4 Days Qty: 16 0RF Continued Prenatabs FA 1 TABLET tablet 1 tab PO DAILY biotin 1 mg capsule 1 mg PO DAILY B-complex with vitamin C Capsule 1 cap PO DAILY
--- NOTE | 2022-11-20 08:36 | PN.OBGYN_ITS ---
Subjective Subjective No overnight complaints. Pain well controlled Objective Data Objective Data Vital Signs: Vital Signs Temp Pulse Resp BP Pulse Ox O2 Del Method 98.2 F 88 18 111/68 99 Room Air 11/19/22 23:30 11/20/22 04:29 11/20/22 04:27 11/20/22 04:27 11/20/22 04:29 11/20/22 04:27 Oxygen Delivery Method Room Air Weight: 245 lb Body Mass Index (BMI) 39.5 Intake & Output: Intake and Output for Last 24 Hours 11/18/22 11/19/22 11/20/22 23:59 23:59 23:59 Intake Total 3316.83 / 3316.83 0 / 0 Output Total 2175 / 2175 Balance 1141.83 / 1141.83 0 / 0 Lab / Micro Data 11/20/22 05:35 Labs: Laboratory Results - last 24 hr 11/19/22 06:40: Syphilis Total Ab Non-reactive, Blood Type O NEGATIVE, Antibody Screen NEGATIVE 11/20/22 05:35: WBC 13.1 H, RBC 3.20 L, Hgb 9.9 L, Hct 30.1 L, MCV 94.1, MCH 30.9, MCHC 32.9, RDW Std Deviation 47.0 H, RDW Coeff of Geronimo 13.8, Plt Count 211, MPV 9.8 Physical Exam Const alert, oriented x3, no apparent distress, average body habitus, healthy appearing and well nourished HEENT normocephalic and moist oral mucous membranes Eyes PERRL Neck full ROM Resp normal respiratory effort, no retractions and no use of accessory muscles GI GI Narrative: Soft, nontender, bandage clean dry and intact Extremity normal to inspection and full ROM Neuro moves all extremities and no focal motor deficits Psych mental status grossly normal, affect normal, speech normal and activity/motor behavior normal Assessment & Plan (1) delivery delivered: PLAN: Postop day 1 status post primary section for nonreassuring heart tones. Breast-feeding. Pain well controlled. Okay to discharge home today if okay with control room supervisor
--- NOTE | 2022-11-20 08:51 | NURSING ---
patient voided 50ml into the toilet and this RN was unable to assess the amount of urine that was voided in the shower. patient states she feels that she was able to fully empty her bladder.
[2022-11-20] MEDS: 0.9% Saline Lock 10 ML Syringe IV (11:05)
[2022-11-20] MEDS: Senna/Docusate Sodium 1 Tablet PO (11:06)
[2022-11-20] MEDS: Ibuprofen 600 MG Tablet PO ×2 (17:42→23:43)
[2022-11-21 02:50] VITALS: BP 116/69; PULSE 85; RESP 16; TEMP 36.4; O2SAT 95
[2022-11-21] MEDS: Ibuprofen 600 MG Tablet PO ×2 (05:49→11:30)
[2022-11-21] MEDS: Acetaminophen 500 MG Tablet 1000 MG PO ×2 (05:49→11:31)
[2022-11-21] MEDS: Enoxaparin 40 MG/0.4 ML Syringe SC (05:50)
[2022-11-21 07:51] VITALS: BP 118/66; PULSE 89; RESP 16; TEMP 36.6; O2SAT 96
--- NOTE | 2022-11-21 09:45 | PCM.DC.BLA ---
Discharge Summary Date of Admission: 11/19/22 Date of Discharge: 11/21/22 Summary: Patient arrived on 11/19/2022 in labor. Subsequently with nonreassuring heart tones and primary section performed on 11/19/2022. Patient's baby with retractions and difficulty breathing on evening of 11/20/2022 sent to special care nursery. Overall patient with routine postoperative recovery and discharge to hotel status on 11/21/2022 Meaningful Use Info Meaningful Use Diagnoses (Choose all that apply): None applicable Discharge Plan Admission Admit Date/Time: 11/19/22 06:15 Primary Reason for Your Visit: Labor Attending Provider: Garo Handy Instructions Additional Instructions / Restrictions: Regular diet. Okay to shower. No tub baths for 2 weeks. No lifting over 25 pounds for 2 to 3 weeks. No intercourse for 6 to 8 weeks. Call if fevers, chills, chest pain, shortness of breath. Follow-up 2 weeks postoperatively Discharge Orders/Prescriptions Prescriptions: New oxycodone 5 mg tablet 5 mg PO Q6H PRN (Reason: pain (scale score 7-10)) 4 Days Qty: 16 0RF Continued Prenatabs FA 1 TABLET tablet 1 tab PO DAILY biotin 1 mg capsule 1 mg PO DAILY B-complex with vitamin C Capsule 1 cap PO DAILY Disposition Disposition (needs filled in before D/C Order can be placed): Home, Self Care
--- NOTE | 2022-11-21 09:47 | PCM.PN.OB ---
Subjective Subjective No overnight complaints Objective Data Objective Data Vital Signs: Vital Signs Temp Pulse Resp BP Pulse Ox O2 Del Method 97.9 F 89 16 118/66 96 Room Air 11/21/22 07:51 11/21/22 07:51 11/21/22 07:51 11/21/22 07:51 11/21/22 07:51 11/21/22 07:51 Oxygen Delivery Method Room Air Weight: 245 lb Body Mass Index (BMI) 39.5 Intake & Output: Intake and Output for Last 24 Hours 11/19/22 11/20/22 11/21/22 23:59 23:59 23:59 Intake Total 3316.83 / 3316.83 0 / 0 Output Total 2175 / 2175 300 / 300 Balance 1141.83 / 1141.83 -300 / -300 Lab / Micro Data 11/20/22 05:35 Physical Exam Const alert, oriented x3, no apparent distress, average body habitus, healthy appearing and well nourished HEENT normocephalic and moist oral mucous membranes Eyes PERRL Neck full ROM Resp normal respiratory effort, no retractions and no use of accessory muscles Extremity normal to inspection and full ROM Neuro moves all extremities and no focal motor deficits Psych mental status grossly normal, affect normal, speech normal and activity/motor behavior normal Assessment & Plan (1) delivery delivered: PLAN: Postop day 2 status post primary section for nonreassuring heart tones. Breast-feeding. Pain well controlled. Baby went to special care nursery yesterday for retractions difficulty breathing. Will discharge patient to hotel status
[2022-11-21] MEDS: Senna/Docusate Sodium 1 Tablet PO (11:32)
[2022-11-21 15:16] VITALS: BP 124/72; PULSE 84; RESP 16; TEMP 36.8; O2SAT 98
== END 2022-11-21 15:45 | disposition home or self-care (01) | DRG 788 ==
PROVIDERS: Student in an Organized Health Care Education/Training Program; Admitting Provider Obstetrics & Gynecology; Visit Provider Obstetrics & Gynecology
DX: O76 Abnormality in fetal heart rate and rhythm complicating labor and delivery (principal); O77.0 Labor and delivery complicated by meconium in amniotic fluid; Z37.0 Single live birth; Z3A.40 40 weeks gestation of pregnancy
CPT/HCPCS: 59025; 59050; 85025; 85027; 86780; 86850; 86900; 86901; 99221; J7120; A4216; G0378; J2405